=== PATIENT | male | born 1995 | race Caucasian/White ===

== ENCOUNTER 2017-02-26 18:58 | Emergency (ER) | payer OTHER ==
[~2017-02-26] VITALS: Ht 177.8 cm; Wt 75.0 kg
[2017-02-26 19:01] VITALS: BP 145/86; TEMP 98
[2017-02-26] MEDS ORDERED: CEPHALEXIN500 M1 PO (20:04)
[2017-02-26 20:14] VITALS: PULSE 86
== END 2017-02-26 20:15 | disposition home or self-care (01) ==
LOC: COL.ER 18:58
DX: S01.81XA Laceration without foreign body of other part of head, initial encounter (principal); S01.531A Puncture wound without foreign body of lip, initial encounter; W18.39XA Other fall on same level, initial encounter; Y93.02 Activity, running; Y92.009 Unspecified place in unspecified non-institutional (private) residence as the place of occurrence of the external cause

== ENCOUNTER 2017-03-04 17:00 | Emergency (ER) | payer OTHER ==
[~2017-03-04 17:00] MED LIST: CEPHALEXIN500 M1 PO
[2017-03-04 17:05] VITALS: BP 143/81; PULSE 73; TEMP 98.3
== END 2017-03-04 17:16 | disposition home or self-care (01) ==
LOC: COL.ER 17:00
DX: Z48.02 Encounter for removal of sutures (principal)